=== PATIENT | male | born 2000 | race Caucasian/White ===

== ENCOUNTER 2024-07-27 15:25 | Emergency (ER) | payer SELFPAY ==
[2024-07-27] MEDS: Ketorolac 30 MG/ML SDV IM ONE (20:47)
== END 2024-07-27 21:05 | disposition home or self-care (01) ==
LOC: MW.ED 15:25
DX: R51.9 Headache, unspecified (principal); Z75.8 Other problems related to medical facilities and other health care
CPT/HCPCS: 70450; 96372; 99284; J1885